=== PATIENT | female | born 2000 | race American Indian/Alaskan Native ===

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

== ENCOUNTER 2019-01-28 21:15 | Outpatient (CLI) | payer OTHER ==
[2019-01-28] MEDS ORDERED: LACTATED RINGERS 500 ML IV ONE (22:01)
[2019-01-28] MEDS ORDERED: LACTATED RINGERS 1,000 ML ONE (22:05)
[2019-01-28] MEDS ORDERED: BUTORPHANOL 2 MG/1 ML INJ IV ONE (22:36)
[2019-01-28 22:45] VITALS: BP 124/59
[2019-01-28] MEDS ORDERED: LACTATED RINGERS 1,000 ML IV SCH (23:00)
[2019-01-28 23:17] LABS: Bacteria,Urine 3+ /HPF (Negative); Bilirubin,Urine NEG (Negative); Blood,Urine NEG (Negative); Color,Urine Yellow (Yellow); Mucus,Urine FEW /HPF; Protein,Urine <15 mg/dL mg/dL (Negative)
== END 2019-01-28 23:00 | disposition home or self-care (01) ==
LOC: TRG 21:15
PROVIDERS: ATTEND Obstetrics & Gynecology
DX: O62.9 Abnormality of forces of labor, unspecified (principal); Z3A.34 34 weeks gestation of pregnancy
CPT/HCPCS: 81001; 87086; 96374; J0595; J7120